=== PATIENT | female | born 1980 | race Caucasian/White ===

== ENCOUNTER 2018-12-24 18:52 | Emergency (ER) | payer BC ==
[~2018-12-24 18:52] MED LIST: EPINEPHRINE INJ 1 MG/10 ML DISP.SYRIN ONE; SODIUM BICARBONATE 8.4% INJ 50 MEQ/50 ML DISP.SYRIN ONE
[2018-12-24] MEDS ORDERED: VASOPRESSIN INJ 20 UNIT/1 ML VIAL ONE ×3 (19:03→20:36)
[2018-12-24] MEDS ORDERED: HYDROMORPHONE HCL INJ/PF 2 MG/ML AMPULE ONE (19:19)
[2018-12-24] MEDS ORDERED: LORAZEPAM INJ 2 MG/1 ML VIAL ONE (19:19)
[2018-12-24] MEDS ORDERED: VECURONIUM BROMIDE INJ 10 MG VIAL IV ONE (19:25)
[2018-12-24] MEDS ORDERED: PROPOFOL 1,000 MG/100 ML INFUS..BTL IV ONE (19:27)
[2018-12-24] MEDS ORDERED: EPINEPHRINE INJ 1 MG/10 ML DISP.SYRIN ONE (19:28)
[2018-12-24] MEDS ORDERED: FUROSEMIDE INJ/PF 20 MG/2 ML SDV ONE (19:30)
[2018-12-24] MEDS ORDERED: AMIODARONE HCL INJ 150 MG/3 ML VIAL IV ONE ×2 (19:36→19:37)
[2018-12-24 19:47] LABS: ARTERIAL BLOOD BASE EXCESS -21.2 mmol/L; ARTERIAL BLOOD HCO3 11.2 mmol/L (20-24); ARTERIAL BLOOD O2 SATURATION 92.4 % (94-98); ARTERIAL BLOOD PCO2 53.1 mmHg (35-45); ARTERIAL BLOOD PO2 99.3 mmHg (80-100); ARTERIAL BLOOD TOTAL CO2 12.9 mmol/L (21-25)
[2018-12-24] MEDS ORDERED: SODIUM BICARBONATE 8.4% INJ 50 MEQ/50 ML DISP.SYRIN ONE ×2 (19:48→19:59)
[2018-12-24 19:49] LABS: HEMATOCRIT 41.1 % (36.0-47.0); HEMOGLOBIN 12.7 g/dL (12.0-15.5); MEAN CORPUSCULAR HEMOGLOBIN 35.1 pg (27.0-33.4); MEAN CORPUSCULAR HGB CONC 30.9 g/dL (32.0-36.0); PLATELET COUNT 617 10^3/uL (150-450); RED BLOOD COUNT 3.62 10^6/uL (3.72-5.28); RED CELL DISTRIBUTION WIDTH 15.4 % (11.5-14.0); WHITE BLOOD COUNT 24.2 10^3/uL (4.0-10.5)
[2018-12-24 19:51] LABS: MEAN CORPUSCULAR VOLUME 114 fl (80-97)
[2018-12-24 19:53] LABS: ARTERIAL BLOOD FIO2 100%
--- NOTE | 2018-12-24 19:53 | RADIOLOGY REPORT (SQ) ---
EXAM DESCRIPTION: CHEST SINGLE VIEW COMPLETED DATE/TIME: 12/24/2018 7:43 pm REASON FOR STUDY: ETT/NG TUBE PLACMENT COMPARISON: None. EXAM PARAMETERS: NUMBER OF VIEWS: One view. TECHNIQUE: Single frontal radiographic view of the chest acquired. RADIATION DOSE: NA LIMITATIONS: None. FINDINGS: LUNGS AND PLEURA: Diffuse patchy airspace opacities throughout both lungs. No pneumothora x or pleural effusion identified. MEDIASTINUM AND HILAR STRUCTURES: Age-appropriate. HEART AND VASCULAR STRUCTURES: Heart upper limits of normal in size. BONES: No acute findings. HARDWARE: Endotracheal tube tip overlies the mid trachea 5.6 cm above the level of the mc. Nasog astric catheter is present with tip beyond the inferior margin of the image passed the GE junction. OTHER: No other significant finding. IMPRESSION: Diffuse patchy airspace opacities throughout both lungs. Endotracheal tube tip overlies the mid trachea 5.6 cm above the level of the mc. Nasogastric catheter is present with tip beyon d the inferior margin of the image passed the GE junction. TECHNICAL DOCUMENTATION: JOB ID: [id number] [place]-72 2010 [employer]- All Rights Reserved Reading location - IP/workstation name: [email or web address]
[2018-12-24 19:54] LABS: ARTERIAL BLOOD PH 6.94 (7.35-7.45)
[2018-12-24 20:02] LABS: ALANINE AMINOTRANSFERASE 79 U/L (9-52); ALBUMIN 2.7 g/dL (3.5-5.0); ALKALINE PHOSPHATASE 132 U/L (38-126); ASPARTATE AMINO TRANSFERASE 121 U/L (14-36); BILIRUBIN,DIRECT 0.2 mg/dL (0.0-0.4); BILIRUBIN,TOTAL 0.2 mg/dL (0.2-1.3); BLOOD UREA NITROGEN 15 mg/dL (7-20); CALCIUM 8.2 mg/dL (8.4-10.2); TOTAL PROTEIN 5.3 g/dL (6.3-8.2)
[2018-12-24 20:07] LABS: ANION GAP 19 (5-19); CARBON DIOXIDE 19 mmol/L (22-30); CHLORIDE 99 mmol/L (98-107); SODIUM 137.2 mmol/L (137-145)
[2018-12-24 20:08] LABS: ABSOLUTE LYMPHOCYTES# (MANUAL) 12.8 10^3/uL (0.5-4.7); ABSOLUTE MONOCYTES # (MANUAL) 1.2 10^3/uL (0.1-1.4); BAND NEUTROPHILS % (MANUAL) 4 % (3-5); BASOPHILS % (MANUAL) 0 % (0-2); EOSINOPHILS % (MANUAL) 2 % (0-6); LYMPHOCYTES % (MANUAL) 51 % (13-45); MONOCYTES % (MANUAL) 5 % (3-13); PLATELET CLUMPS PRESENT; SEGMENTED NEUTROPHILS % (MAN) 33 % (42-78); TOTAL CELLS COUNTED 100
[2018-12-24 20:11] LABS: ANISOCYTOSIS SLIGHT; HYPOCHROMASIA SLIGHT; METAMYELOCYTES % (MANUAL) 2 % (0); MYELOCYTES % (MANUAL) 1 % (0); POIKILOCYTOSIS SLIGHT
[2018-12-24 20:13] LABS: GLUCOSE 508 mg/dL (75-110)
[2018-12-24 20:15] LABS: TROPONIN I 1.52 ng/mL
[2018-12-24] MEDS ORDERED: VANCOMYCIN HCL INJ 1000 MG VIAL IV ONE (20:16)
[2018-12-24] MEDS ORDERED: PIPERACILLIN/TAZOBACTAM 3.375 GM VIAL IV ONE (20:16)
--- NOTE | 2018-12-24 20:29 | ER Document Report ---
ED General - General Chief Complaint: Cardiac Arrest Stated Complaint: DIFFICULTY BREATHING Primary Care Provider: ANGELITA ROMO MD [Primary Care Provider] - Follow up as needed Cannot obtain history due to: Unstable vital signs, Altered mental status Notes: Patient is a 38-year-old female with past medical history of pericarditis diagnosed last week at [facility] patient arrives by EMS, sagrario-arrest, hypoxic and in critical condition. No further history can be obtained at time of initial evaluation secondary to patient's critical nature. Please see medical decision making for further history. - Related Data Allergies/Adverse Reactions: No Known Allergies Allergy (Unverified 12/24/18 20:09) Past Medical History - General Information source: Emergency Med Personnel - Social History Smoking Status: Current Every Day Smoker Frequency of alcohol use: None Drug Abuse: None Lives with: Family Family History: Other - Unable to obtain secondary to critical nature Patient has suicidal ideation: No Patient has homicidal ideation: No Renal/ Medical History: Denies: Hx Peritoneal Dialysis Review of Systems - Review of Systems -: Yes ROS unobtainable due to patient's medical condition Physical Exam - Vital signs Interpretation: Hypotensive, Bradycardic, Hypoxic Notes: PHYSICAL EXAMINATION: GENERAL: Critically ill in appearance, cold, pale and cyanotic. Unresponsive. HEAD: Atraumatic, normocephalic. EYES: Pupils are sluggishly reactive bilaterally. ENT: nares patent, pulmonary edema frothing from the mouth NECK: supple without lymphadenopathy LUNGS: Diffuse rhonchi in all lung monahan. HEART: Irregular bradycardia. On bedside echocardiogram, trace pericardial effusion is noted with global dyskinesia. No RV dilation or septal bowing. ABDOMEN: Soft, No masses appreciated. EXTREMITIES: no pitting or edema. Diffuse cyanosis. NEUROLOGICAL: GCS 3 T PSYCH: Unable to assess. SKIN: Cold, clammy skin Course - Re-evaluation Re-evalutation: 12/24/18 20:17 Documentation is delayed as I been at this patient's bedside continuously since her arrival 1851. In summary this patient arrived severely hypoxic, now perfused, cold to the touch throughout. The patient apparently had an abrupt onset of shortness of breath while at work today, went home and they shortness of breath rapidly worsened. Her whom I spoke to subsequent to resuscitation stated that the patient was sweaty, extremely anxious, coughing, and " looked like she could not breathe". The contacted 911. When EMS arrived they stated the patient was saturating 72% on room air, coarse rales in all lung monahan. In route to the hospital she developed ventricular tachycardia, was shocked once with return to a sinus tachycardia. As they arrived to the ambulance bay they noted that the patient was beginning to have bradycardia. When the patient arrived in the trauma bay, she was noted to be cyanotic, extremely ill in appearance, unresponsive. She had pulmonary edema frothing from her mouth. Bedside echo was immediately performed and showed global dyskinesia without any significant pericardial effusion as I was doing the echocardiogram cardiac contractility was noted to terminate. I immediately began chest compressions and called a code. Standard ACLS protocols were used. An epinephrine infusion was initiated. An amiodarone bolus was given and an amiodarone infusion subsequently initiated. During pulse checks it appeared that the patient was in PEA and we could not appreciate a pulse. The patient was also intubated during the code without pause of chest compressions. Pulmonary edema was immediately noted to back up into the ET tube. Bag valve was used and a Peep valve was likewise applied. The patient was noted to be b iting at the tube despite the fact that we were not able to feel pulses. Vasopressin infusion was subsequently initiated. Epinephrine infusion was increased to 40 mcg/min. I repeated a bedside echocardiogram that showed that the patient did indeed have cardiac contractility. Chest compressions were subsequently stopped. I did a continuous echocardiogram at the bedside that showed rapidly improving cardiac contractility, no increase in pericardial effusion. A dobutamine infusion was started, relatively rapidly escalated up to a dose of 14 mcg/kg/min, patient was noted to be breathing spontaneously, dyssynchronous with the ventilator. 20mg of vecuronium was administered. 2 mg of hydromorphone and a propofol infusion were started for sedation. No IV fluids were administered due to overt volume overload. 40 total milligrams of furosemide were administered. 2 Amps of bicarb were administered. Patient was noted to have progressively improving contractility on bedside echo and this was subsequently discontinued. A right femoral central line was placed. Femoral line was elected as I did not wish to irritate the myocardium further as patient already had an episode of ventricle tachycardia with either subclavian or internaljugular line. All vasopressor infusions were subsequently transferred to the femoral line. A chest x-ray was obtained, showed diffuse pulmonary edema, ET tube in appropriate position. During placement of central line, I did consult with Dr. Saldana the deputy sheriff building guard at [facility] who graciously accepted the patient. Over the course of the next 1 hour the patient did have significant clinical improvement. Initially she had significant hypoxia, her ventilator settings were started as an ARDS protocol with tidal volumes of 350, respiratory rate of 24. FiO2 was maintained at 100% and PEEP was increased to 20. Her oxygen saturations gradually improved into the mid 80s on the settings. Her epinephrine infusion was able to be weaned from 30 mcg/min down to 12 over the course of 1 hour. Vasopressin kept at 0.04 units/kg/min. A bicarbonate infusion was likewise started after ABG resulted at 6.9. Patient had a markedly elevated white blood cell count as well as lactate which I do suspect was more from hypoxia, and catecholamine surge however patient was administered 3.375 g of Zosyn. Temperature Estrada catheter was placed. Patient was noted to be hypothermic initially, bear hugger applied and patient had rapid resolution of her hypothermia and bear hugger was able to be discontinued. The patient's was updated on all care and understands the critical nature of her his 's current clinical situation. Air care was requested. Flight crew arriving at 2029. Bedside report given. Overall clinical impression is that the patient has acute onset of congestive heart failure with flash pulmonary edema likely second underlying myopericarditis. A pulmonary embolus was considered although this seems unlikely as there is no dilation of the RV, no septal bowing, and I would not expect such pronounced pulmonary edema and global dyskinesia on initial echocardiogram. Nothing to suggest cardiac tamponade on initial echo. Patient is likewise improving with therapy for acute congestive heart failure and pulmonary edema which I would not expect to provide such significant improvement if the patient had pulmonary embolus. I therefore deferred administration of thrombolytics to this patient. 12/24/18 20:45 All drips have been remade so that the flight crew has sufficient supplies for flight. I have updated the patient's father and at the bedside again. Patient's oxygenation has improved to the upper 80s, low 90s. ET tube was advanced by 2 cm based on chest x-ray read by radiology. - Laboratory Result Diagrams: 12/24/18 19:30 12/24/18 19:30 Laboratory results interpreted by me: 12/24/18 12/24/18 12/24/18 19:01 19:30 19:30 WBC 24.2 H RBC 3.62 L MCV 114 H MCH 35.1 H MCHC 30.9 L RDW 15.4 H Plt Count 617 H Seg Neuts % (Manual) 33 L Lymphocytes % (Manual) 51 H Metamyelocytes % 2 H Myelocytes % 1 H Abs Neuts (Manual) 9.7 H Abs Lymphs (Manual) 12.8 H Carbonic Acid ABG pH ABG pCO2 ABG HCO3 ABG Total CO2 ABG O2 Saturation Carbon Dioxide 19 L Glucose 508 H* POC Glucose 138 H Lactic Acid Calcium 8.2 L AST 121 H ALT 79 H Alkaline Phosphatase 132 H Lactate Dehydrogenase 487 H NT-Pro-B Natriuret Pep Total Protein 5.3 L Albumin 2.7 L Urine Protein Urine Glucose (UA) Urine Blood 12/24/18 12/24/18 12/24/18 19:30 19:30 19:30 WBC RBC MCV MCH MCHC RDW Plt Count Seg Neuts % (Manual) Lymphocytes % (Manual) Metamyelocytes % Myelocytes % Abs Neuts (Manual) Abs Lymphs (Manual) Carbonic Acid 1.60 H ABG pH 6.94 L* ABG pCO2 53.1 H ABG HCO3 11.2 L ABG Total CO2 12.9 L ABG O2 Saturation 92.4 L Carbon Dioxide Glucose POC Glucose Lactic Acid 11.5 H Calcium AST ALT Alkaline Phosphatase Lactate Dehydrogenase NT-Pro-B Natriuret Pep 2950 H Total Protein Albumin Urine Protein Urine Glucose (UA) Urine Blood 12/24/18 20:00 WBC RBC MCV MCH MCHC RDW Plt Count Seg Neuts % (Manual) Lymphocytes % (Manual) Metamyelocytes % Myelocytes % Abs Neuts (Manual) Abs Lymphs (Manual) Carbonic Acid ABG pH ABG pCO2 ABG HCO3 ABG Total CO2 ABG O2 Saturation Carbon Dioxide Glucose POC Glucose Lactic Acid Calcium AST ALT Alkaline Phosphatase Lactate Dehydrogenase NT-Pro-B Natriuret Pep Total Protein Albumin Urine Protein 100 H Urine Glucose (UA) >=500 H Urine Blood SMALL H - Diagnostic Test Radiology reviewed: Image reviewed, Reports reviewed Radiology results interpreted by me: 12/24/18 20:49 Chest x-ray: Diffuse pulmonary edema, ET tube several centimeters high. No evidence of pneumothorax. - EKG Interpretation by Me Additional EKG results interpreted by me: 12/24/18 20:50 Irregular rhythm, diffuse ST elevations. QT prolonged at 506. Rate 104. Procedures - Central Line Right Femoral Consent obtained: No - Emergent Central line pre-insertion: Sterile PPE donned, Chloraprep applied, Sterile drapes applied Central line lumen type: Triple Ultrasound guided: Yes CM at insertion site: 30 Line secured with sutures: Yes Central line post-insertion: Blood return from lumens, Biopatch applied, Sutured, Sterile dressing applied Number of attempts: 1 Complications: No - Intubation Orotracheal Airway evaluation: Normal anatomy Mallampati Classification: Class 1 Medications: Other - None, intubated during cardiac arrest Intubation method: Orotracheal Blade type: Lia Blade size: 4 ETT size: 7.5 ETT secured at: Lips ETT secured at (cm): 21 Breath Sounds after Intubation: Equal End tidal CO2 confirmed: Yes Ventilator settings: SIMV Tidal volume: 350 FiO2: 100 Respirations: 24 PEEP: 20 Post Intubation Xray: Yes Intubation Complications: No complications Critical Care Note - Critical Care Note Total time excluding time spent on procedures (mins): 85 Comments: Critical care time spent obtaining history from patient or surrogate, discussions with consultants, development of treatment plan with patient or surrogate, evaluation of patient's response to treatment, examination of patient, ordering and performing treatments and interventions, ordering and review of laboratory studies, re-evaluation of patient's condition, ordering and review of radiographic studies and review of old charts Discharge - Discharge Clinical Impression: Flash pulmonary edema, Cardiogenic shock, Acute respiratory failure with hypoxia, Ventricular tachycardia, Myopericarditis Condition: Critical Disposition: [facility] Referrals: ANGELITA ROMO MD [Primary Care Provider] - Follow up as needed
[2018-12-24 20:32] LABS: APPEARANCE,URINE SLIGHTLY-CLOUDY; BILIRUBIN,URINE NEGATIVE (NEGATIVE); COLOR,URINE STRAW; GLUCOSE, URINE >=500 mg/dL (NEGATIVE); KETONES,URINE NEGATIVE (NEGATIVE); LEUKOCYTE ESTERASE,URINE NEGATIVE (NEGATIVE); NITRITE,URINE NEGATIVE (NEGATIVE); PROTEIN,URINE 100 mg/dL (NEGATIVE); URINE SPECIFIC GRAVITY 1.007; UROBILINOGEN,URINE NEGATIVE mg/dL (<2.0)
[2018-12-24 20:41] LABS: URINE AMPHETAMINES SCREEN NEGATIVE; URINE BARBITURATES SCREEN NEGATIVE; URINE BENZODIAZEPINES SCREEN UNCONFIRMED POSITIVE; URINE COCAINE SCREEN NEGATIVE; URINE MARIJUANA (THC) SCREEN NEGATIVE; URINE METHADONE SCREEN NEGATIVE; URINE PHENCYCLIDINE SCREEN NEGATIVE
[2018-12-24] MEDS ORDERED: EPINEPHRINE INJ/PF 1 MG/1 ML AMPULE ONE ×3 (20:44→20:46)
[2018-12-24 20:49] VITALS: BP 91/70
[2018-12-24] MEDS ORDERED: DEXTROSE 5%-WATER 1000 ML 1,000 ML with SODIUM BICARBONATE 50 MEQ IV PRN ×2 (21:47)
[2018-12-24] MEDS ORDERED: DEXTROSE 5%-WATER 250 ML with EPINEPHRINE/PF 1 MG IV PRN ×6 (21:48→22:15)
[2018-12-24] MEDS ORDERED: FUROSEMIDE INJ/PF 20 MG/2 ML SDV IV ONE (21:48)
[2018-12-24] MEDS ORDERED: PROPOFOL 1,000 MG/100 ML INFUS..BTL IV PRN (21:49)
[2018-12-24] MEDS ORDERED: DEXTROSE 5%-WATER 500 ML with AMIODARONE HCL 900 MG IV PRN ×2 (21:50)
[2018-12-24] MEDS ORDERED: DEXTROSE 5%-WATER 250 ML with VASOPRESSIN 100 UNIT IV PRN ×2 (21:51)
[2018-12-24] MEDS ORDERED: DOBUTAMINE HCL/D5W 500 MG/250 ML RTUINJ IV PRN (21:51)
--- NOTE | 2018-12-26 00:04 | EKG REPORT ---
SEVERITY:- ABNORMAL ECG - ATRIAL FLUTTER, A-RATE 267 ABERRANT COMPLEX, POSSIBLY SUPRAVENTRICULAR RIGHT AXIS DEVIATION INFERIOR INFARCT, ACUTE BORDERLINE PROLONGED QT INTERVAL : Confirmed by: Jian Patel 26-Dec-2018 00:03:58
[2018-12-27 15:27] LABS: PATH REVIEW PATHOLOGIST REVIEWED
== END 2018-12-24 22:18 | disposition short-term general hospital (02) ==
LOC: ER 18:52
DX: J96.01 Acute respiratory failure with hypoxia (principal); R57.0 Cardiogenic shock; I47.2 Ventricular tachycardia; I31.9 Disease of pericardium, unspecified; J81.1 Chronic pulmonary edema; F17.200 Nicotine dependence, unspecified, uncomplicated
CPT/HCPCS: 93005; 99291; 99292; 92950; 51702; 96375; 96365; 96366; 96368; 36415; 87040; 82962; 82803; 83605; 83615; 85025; 80053; 81001; 84484; 80307; 83880; 71045; 94660; 93010; 36600; 31500; 36556; J0171 ×2; J1940; J2704; J3490 ×3; J1170; J2060; J1250; J7060 ×3; J0282; J2543